=== PATIENT | male | born 1950 | race Caucasian/White ===

== ENCOUNTER 2025-05-20 08:39 | Emergency (ER) | payer MEDICARE, OTHER ==
[~2025-05-20] VITALS: Ht 175.3 cm; Wt 68.0 kg
[2025-05-20 09:29] LABS: BASOPHILS ABSOLUTE AUTO 0.04 K/mm3 (0.00-0.23); BASOPHILS PERCENT AUTO 1 % (0-2); EOSINOPHILS ABSOLUTE AUTO 0.13 K/mm3 (0.00-0.68); EOSINOPHILS PERCENT AUTO 2 % (0-6); Hematocrit 39.3 % (37.0-53.0); Hemoglobin 12.4 g/dL (13.5-17.5); IMMATURE GRAN ABSOLUTE AUTO 0.01 K/mm3 (0.00-0.10); IMMATURE GRAN PERCENT AUTO 0 % (0-1); LYMPHOCYTES ABSOLUTE AUTO 1.55 K/mm3 (0.84-5.20); LYMPHOCYTES PERCENT AUTO 28 % (21-46); MONOCYTES ABSOLUTE AUTO 0.51 K/mm3 (0.16-1.47); MONOCYTES PERCENT AUTO 9 % (4-13); Mean Corpuscular HGB Conc 31.6 g/dL (31.5-36.5); Mean Corpuscular Volume 85 fL (80-100); NEUTROPHILS ABSOLUTE AUTO 3.37 K/mm3 (1.96-9.15); NEUTROPHILS PERCENT AUTO 60 % (41-73); NRBC ABSOLUTE 0.00 K/mm3 (0.00-0.02); NRBC Auto 0.0 /100 WBC (0.0-0.2); Platelet Count 250 K/mm3 (150-400); RDW Coefficient Variation 14.9 % (11.7-14.2); RDW Standard Deviation 45.9 fL (35.1-46.3)
[2025-05-20 09:52] LABS: Alanine Aminotransfer (ALT/SGP 18.0 U/L (12-78); Albumin, Blood 3.2 g/dL (3.4-5.0); Albumin/Globulin Ratio 0.9 (0.8-1.8); Anion Gap 10.0 mmol/L (3-11); Aspartate Aminotrans (AST/SGOT 14.0 U/L (12-37); Bilirubin, Total 0.2 mg/dL (0.1-1.0); Blood Urea Nitrogen 27.0 mg/dL (8-24); CO2, Blood 25.0 mmol/L (21-32); Calcium, Blood 8.7 mg/dL (8.5-10.1); Chloride, Blood 110.0 mmol/L (98-108); Creatinine, Blood 0.98 mg/dL (0.60-1.20); Globulin, Blood 3.4 g/dL (2.2-4.0); Glucose, Blood 96.0 mg/dL (70-99); Potassium, Blood 4.0 mmol/L (3.5-5.5); Sodium, Blood 141.0 mmol/L (136-145); Total Protein, Blood 6.6 g/dL (6.4-8.2)
[2025-05-20] MEDS ORDERED: Ketorolac Tromethamine 15mg Vial IV ONE (10:20)
[2025-05-20] MEDS ORDERED: NS 1,000 ML IV SCH (10:20)
[2025-05-20] MEDS ORDERED: Ondansetron HCl 2 MG / ML 2ML Vial IV ONE (10:20)
[2025-05-20 10:24] LABS: Influenza A, PCR NEGATIVE (NEGATIVE); Influenza B, PCR NEGATIVE (NEGATIVE); Resp Syncytial Virus, PCR NEGATIVE (NEGATIVE); SARS-Cov-2 (COVID-19) PCR, MMC NEGATIVE (NEGATIVE)
[2025-05-20 10:39] LABS: Source, Urine Clean Catch
[2025-05-20 10:43] LABS: Bilirubin, Urine Neg (Neg); Color, Urine Yellow (P-Yellow); Glucose Qualitative, Urine Neg (Neg); Ketones, Urine Neg (Neg); Leukocyte Esterase, Urine Neg (Neg); Protein, Urine 1+ (Neg); Specific Gravity, Urine 1.020 (1.003-1.022); Urobilinogen, Urine NORM (Normal)
[2025-05-20 10:53] LABS: White Blood Cells, Urine 0-2 /hpf (0-5)
[2025-05-20] MEDS ORDERED: TAMS.4ER PO (11:20)
[2025-05-20] MEDS ORDERED: CEFP200 PO (11:20)
[2025-05-20] MEDS ORDERED: Percocet 5-3251 EACH PO (11:20)
[2025-05-20] MEDS ORDERED: ELIQUIS5 M2 PO (12:15)
[2025-05-20] MEDS ORDERED: AMLO5 PO (12:15)
[2025-05-20] MEDS ORDERED: FAMO20 PO (12:16)
[2025-05-20] MEDS ORDERED: Lisinopril-Hct1 EAC4 PO (12:16)
[2025-05-20] MEDS ORDERED: LOPE2C PO (12:16)
[2025-05-20] MEDS ORDERED: Flomax0.4 MG PO (12:17)
[2025-05-20] MEDS ORDERED: LORA.5 PO (12:17)
== END 2025-05-20 13:04 | disposition home or self-care (01) ==
LOC: ER 08:39
PROVIDERS: Student in an Organized Health Care Education/Training Program
DX: N21.0 Calculus in bladder (principal); N20.0 Calculus of kidney
CPT/HCPCS: 51701; 71045; 74177; 80053; 81001; 83605; 83690; 84484; 85025; 87637; 93005; 93010; 96374-59; 96375; 99285-25; J1885; J2405; J7030; Q9967

== ENCOUNTER → 2025-07-05 | Outpatient (CLI) | payer MEDICARE, OTHER ==
[~2025-07-05] MED LIST: AMLO5 PO; CEFP200 PO; ELIQUIS5 M2 PO; FAMO20 PO; Flomax0.4 MG PO; LOPE2C PO; LORA.5 PO; Lisinopril-Hct1 EAC4 PO; Percocet 5-3251 EACH PO; TAMS.4ER PO
[2025-07-05 16:34] LABS: Source, Urine Voided
[2025-07-05 17:14] LABS: Bilirubin, Urine Neg (Neg); Color, Urine Yellow (P-Yellow); Glucose Qualitative, Urine Neg (Neg); Ketones, Urine Neg (Neg); Leukocyte Esterase, Urine Neg (Neg); Protein, Urine Neg (Neg); Specific Gravity, Urine 1.015 (1.003-1.022); Urobilinogen, Urine NORM (Normal)
[2025-07-05 17:22] LABS: Red Blood Cells, Urine 0-2 /hpf (0-2); White Blood Cells, Urine 0-2 /hpf (0-5)
== END | disposition home or self-care (01) ==
LOC: LAB 16:33 → LAB SHORT 16:33
PROVIDERS: Physician Assistant
DX: N39.0 Urinary tract infection, site not specified (principal)
CPT/HCPCS: 81001; 87077; 87086; 87186